=== PATIENT | female | born 1965 | race Caucasian/White ===

== ENCOUNTER 2017-11-24 06:28 | Emergency (ER) | payer OTHER, MEDICARE ==
[~2017-11-24 06:28] MED LIST: AMOXIL 875 MG875 MG PO; ATORVASTATIN CA40 MG PO; FISH OIL500 MG PO; FLUOXETINE20 MG PO; HYDRODIURIL 2525 MG PO; NASONEX0.05 MG/Ac INH; PREDNISONE 20MG20 MG PO; PROAIR HFA0.09 MG/Ac INH; SYMBICORT 160/41 PUF INH; TESSALON PERLE100 MG PO
--- NOTE | 2017-11-24 07:13 | ED INFLUENZA/URI COMPLAINT ---
History of Present Illness General Chief Complaint: General Adult Stated Complaint: "COUGH W/ PHLEM" Source: family, old records Exam Limitations: NONVERBAL SECONDARY TO AUTISM Vital Signs & Intake/Output Vital Signs & Intake/Output Vital Signs Date Time Temp Pulse Resp B/P B/P Pulse O2 O2 Flow FiO2 Mean Ox Delivery Rate 11/24 0801 98.4 90 20 193/93 95 Room Air 11/24 0644 99.8 101 22 150/93 95 Room Air Allergies Coded Allergies: MDX - Bacitracin (From Band-Aid Brand Adhesive Bandages) (Severe, RASH 08/19/13) MDX - Latex (LATEX) (Severe, LIP SWELLING 02/08/11) MDX - Neomycin (From Band-Aid Brand Adhesive Bandages) (Severe, RASH 08/19/13) MDX - Polymyxin B (From Band-Aid Brand Adhesive Bandages) (Severe, RASH 08/19/13 ) MDX - TAPE (TAPE) (Severe, RASH FROM ADHESIVE TAPE 08/19/13) MDX - Shrimp (Shrimp) (Intermediate, FACIAL EDEMA 08/19/13) Uncoded Allergies: LOBSTER (Severe, FACIAL EDEMA 02/08/11) GRASS (Intermediate, URI 02/08/11) TREES (Intermediate, URI 02/08/11) Reconcile Medications Amoxicillin (Amoxil 875 MG Tablets) 875 MG TAB 1 TAB PO BID bronchospasm Atorvastatin Calcium (Lipitor) 40 MG TAB 1 TAB PO DAILY CHOLESTROL (Reported) Benzonatate (Tessalon Perle) 100 MG SGL 1 CAP PO TID PRN COUGH Budesonide/Formoterol Fumara (Symbicort 160-4.5 Mcg Inhaler) 160 MCG/4.5 MCG PUF 2 PUFF INH Q12P PRN BREATHING (Reported) Fluoxetine Hydrochloride (Fluoxetine) 20 MG CAP 1 TAB PO DAILY ALLERGIES ( Reported) Hydrochlorothiazide (Hydrodiuril 25 MG Tab) 25 MG TAB 1 TAB PO DAILY BLOOD PRESSURE (Reported) Mometasone Furoate (Nasonex) 0.05 MG/Actuation SPR 2 SPRAY INH PRN PRN BREATHING (Reported) Prednisone 20 MG TAB 1 TAB PO BID BRONCHOSPASM SALMON OIL/OMEGA-3 FATTY ACIDS (Fish Oil 500 MG Softgel) 500 MG CAP 1 TAB PO DAILY VITAMIN (Reported) Triage Note: PER FAMILY OF PT(PT NONVERBAL) COUGH WITH THICK PHLEGM X 2 WEEKS NO KNOWN FEVERS Triage Nurses Notes Reviewed? yes HPI: Patient brought in by her mother for evaluation of a productive cough that she's had for the past few weeks. There are no fevers. There is no vomiting. Patient has been acting appropriately per her mom. Patient is unable to give any history secondary to nonverbal secondary to autism since . Similar symptoms in the past the patient has required antibiotics and steroids. Past History Travel History Traveled to [place] past 21 day No Medical History Any Pertinent Medical History? see below for history Neurological: NONE EENT: NONE Cardiovascular: hypertension Respiratory: asthma Gastrointestinal: NONE Hepatic: NONE Renal: NONE Musculoskeletal: NONE Psychiatric: AUTISM Endocrine: NONE Surgical History Surgical History: non-contributory Psychosocial History What is your primary language Trinidadian Tobacco Use: Never used ETOH Use: denies use Illicit Drug Use: denies illicit drug use Family History Hx Contributory? No Review of Systems Review of Systems Constitutional: Reports: no symptoms. EENTM: Reports: no symptoms. Respiratory: Reports: see HPI, cough, sputum production. GI: Reports: no symptoms. Neurological/Psychological: Reports: no symptoms. Immunologic/Allergic: Reports: no symptoms. Physical Exam Physical Exam General Appearance: well developed/nourished, awake, mild distress Head: atraumatic, normal appearance Eyes: Bilateral: PERRL, EOMI. Ears, Nose, Throat: normal ENT inspection, moist mucous membrane Neck: normal inspection, supple, full range of motion Respiratory: normal breath sounds, rhonchi (SCATTERED) Cardiovascular: regular rate/rhythm, normal peripheral pulses Extremities: normal inspection, normal capillary refill, normal range of motion, no edema Lymphatic: no anterior cervical tata Core Measures Sepsis Present: No Sepsis Focused Exam Completed? No Progress Differential Diagnosis: pneumonia, BRONCHITIS Plan of Care: Current Medications Sig/Wilfredo Start time Last Medication Dose Stop Time Status Admin Amoxicillin 500 MG ONCE ONE 11/24 814 UNVr (Amoxil) 11/25 815 Benzonatate 100 MG ONCE ONE 11/24 814 UNVr (Tessalon Capsule) 11/25 815 Prednisone 60 MG ONCE ONE 11/24 814 UNVr 11/25 815 Diagnostic Imaging: Viewed by Me: Radiology Read. Discussed w/RAD: Radiology Read. CXR Impression: PATIENT: AJ HARRISON PRESENT AGE: 52 PATIENT ACCOUNT NO: [id number] : 64 LOCATION: [facility] ORDERING PHYSICIAN: Jonathan Del Real MD SERVICE DATE: 11/24/17 EXAM TYPE: RAD - XRY- CHEST XRAY, TWO VIEWS EXAMINATION: XR CHEST CLINICAL INFORMATION: Cough and low- grade temperature COMPARISON: August 16, 2015 TECHNIQUE: 2 views of the chest were obtained. FINDINGS: There is parenchymal disease seen within the left lower lobe and lingula. There may be some degree of pleural fluid present. Heart normal size. No evidence of airspace edema. There are some increased interstitial markings and vascular markings bilaterally. No pneumothorax is seen. IMPRESSION: Left lower lobe and lingula disease consistent with atelectasis or pneumonia with some degree of pleural fluid suspected. DICTATED BY: Raffy Ivy MD DATE/TIME DICTATED:11/24/17757 APPEALS OFFICER: YUMIKO DATE/TIME TRANSCRIBED:11/24/17757 CONFIDENTIAL, DO NOT COPY WITHOUT APPROPRIATE AUTHORIZATION. <Electronically signed in Other Vendor System> SIGNED BY: Raffy Ivy MD 11/24/17 08 Initial ED EKG: none Comments: [facility] CALLED ASKING ABOUT THE DELAY IN THE CXR READ. THEY STATE THAT HER CXR IS THE NEXT TO BE READ. Departure Departure Disposition: HOME OR SELF CARE Condition: Stable Clinical Impression Primary Impression: Pneumonia Qualifiers: Pneumonia type: due to unspecified organism Laterality: left Lung location: lower lobe of lung Qualified Code: J18.1 - Lobar pneumonia, unspecified organism Referrals: Sailaja Wilburn (PCP/Family) Additional Instructions: Take the amoxicillin, prednisone as prescribed. Take Tessalon as needed for the cough. Patient retake her blood pressure medication when he got home. Return if symptoms worsen or for any concerns. Departure Forms: Customer Survey General Discharge Information Prescriptions: Current Visit Scripts Amoxicillin 1 TAB PO TID #30 TAB Benzonatate (Tessalon Perle) 1 CAP PO TID PRN COUGH #30 CAP Prednisone 1 TAB PO DAILY #18 TAB TAKE 3 TABS FOR 3 DAYS THEN TAKE 2 TABS FOR 3 DAYS THEN TAKE 1 TAB FOR 3 DAYS
--- NOTE | 2017-11-24 08:04 | RADIOLOGY REPORT ---
EXAMINATION: XR CHEST CLINICAL INFORMATION: Cough and low-grade temperature COMPARISON: August 16, 2015 TECHNIQUE: 2 views of the chest were obtained. FINDINGS: There is parenchymal disease seen within the left lower lobe and lingula. There may be some degree of pleural fluid present. Heart normal size. No evidence of airspace edema. There are some increased interstitial markings and vascular markings bilaterally. No pneumothorax is seen. IMPRESSION: Left lower lobe and lingula disease consistent with atelectasis or pneumonia with some degree of pleural fluid suspected.
[2017-11-24] MEDS ORDERED: PREDNISONE10 M2 PO (08:09)
[2017-11-24] MEDS ORDERED: AMOXICILLIN500 M3 PO (08:09)
[2017-11-24] MEDS ORDERED: TESSALON PERLE100 M1 PO (08:09)
[2017-11-24 08:24] VITALS: BP 166/88
== END 2017-11-24 08:24 ==
LOC: ERH 06:28
DX: J18.9 Pneumonia, unspecified organism (principal)
CPT/HCPCS: 71046

== ENCOUNTER 2018-04-28 06:34 | Emergency (ER) | payer OTHER, MEDICARE ==
[~2018-04-28 06:34] MED LIST changes: +AMOXICILLIN500 M3 PO; +PREDNISONE10 M2 PO; +TESSALON PERLE100 M1 PO
--- NOTE | 2018-04-28 07:24 | RADIOLOGY REPORT ---
EXAMINATION: XR CHEST CLINICAL INFORMATION: Cough COMPARISON: 11/24/2017 TECHNIQUE: 2 views of the chest were obtained. FINDINGS: Lung volumes are symmetric. Small right pleural effusion is present with mild, somewhat streaky right basilar opacity. The left lung appears well-aerated with probable small pleural effusion. No pneumothorax is seen. The cardiomediastinal contour is unremarkable. No acute osseous findings are seen. IMPRESSION: Small bilateral pleural effusions. Somewhat streaky right basilar opacity may reflect atelectasis or potentially developing consolidation.
--- NOTE | 2018-04-28 07:34 | ED DYSPNEA/ASTHMA COMPLAINT ---
History of Present Illness General Chief Complaint: Upper Respiratory Sx/Fever Stated Complaint: HEAVY COUGH PER MOM Source: patient Exam Limitations: no limitations Vital Signs & Intake/Output Vital Signs & Intake/Output Vital Signs Date Time Temp Pulse Resp B/P B/P Pulse O2 O2 Flow FiO2 Mean Ox Delivery Rate 04/28 717 98.9 94 15 146/73 95 Room Air Allergies Coded Allergies: adhesive tape (Severe, RASH 04/28/18) bacitracin (Severe, RASH 04/28/18) latex (Severe, LIP SWELLING 04/28/18) neomycin (Severe, RASH 04/28/18) polymyxin B (Severe, RASH 04/28/18) shrimp (Intermediate, RACIAL EDEMA 04/28/18) Uncoded Allergies: LOBSTER (Severe, FACIAL EDEMA 02/08/11) GRASS (Intermediate, URI 02/08/11) TREES (Intermediate, URI 02/08/11) Reconcile Medications Atorvastatin Calcium (Lipitor) 40 MG TAB 1 TAB PO DAILY CHOLESTROL (Reported) Fluoxetine Hydrochloride (Fluoxetine) 20 MG CAP 1 TAB PO DAILY ALLERGIES ( Reported) Hydrochlorothiazide (Hydrodiuril 25 MG Tab) 25 MG TAB 1 TAB PO DAILY BLOOD PRESSURE (Reported) SALMON OIL/OMEGA-3 FATTY ACIDS (Fish Oil 500 MG Softgel) 500 MG CAP 1 TAB PO DAILY VITAMIN (Reported) Triage Note: TRIAGE: PATIENT TO ER FROM HOME W/ MOTHER REPORTING +PRODUCTIVE COUGH X 1 WEEK, UNKNOWN WHAT COLOR SPUTUM. ALSO REPORTING NASAL CONGESTION, DENIES SOB. NO ACUTE RESP DISTRESS. PATIENT HX MR, MOTHER W/ PATIENT FOR SUPPORT/ ASSIST. Triage Nurses Notes Reviewed? yes Duration: day(s):, continues in ED, intermittent Timing: multiple episodes today Severity: severe HPI: Patient presents for evaluation of a "chest cough" that began about 1 week ago. The patient herself is unable to provide history due to autism. Patient's mother states there has been a phlegm production with the coughing but no associated dyspnea rashes vomiting or diarrhea. Past History Travel History Traveled to [place] past 21 day No Medical History Any Pertinent Medical History? see below for history Neurological: NONE EENT: NONE Cardiovascular: hypertension Respiratory: asthma Gastrointestinal: NONE Hepatic: NONE Renal: NONE Musculoskeletal: NONE Psychiatric: AUTISM Endocrine: NONE Blood Disorders: NONE Cancer(s): NONE LAW EXAMINER/Reproductive: NONE Surgical History Surgical History: non-contributory Psychosocial History What is your primary language Vietnamese Tobacco Use: Never used Family History Hx Contributory? No Review of Systems Review of Systems Constitutional: Reports: see HPI. Physical Exam Physical Exam Respiratory: see below Comments: Gen.: Well-nourished, well-developed, no acute respiratory distress. Head: Normocephalic, atraumatic. Eyes: Normal inspection bilaterally Ears: Normal inspection bilaterally Nose: Normal inspection Throat/mouth : Moist mucosa Neck: Supple, full range of motion, no goiter Heart: Regular rate and rhythm, no murmurs rubs or gallops Lungs: Mild bibasilar crackles with good air entry bilaterally Chest: Nontender Back: Normal range of motion Abdomen: Soft, nontender, nondistended, normal bowel sounds Extremities: Normal range of motion grossly, equal radial pulses, no cyanosis, mild left pretibial edema (chronic per patient's mother due to prior trauma) Neurologic: Cranial nerves grossly intact, unable to assess speech Skin: warm and dry Psychiatric: Calm, cooperative Core Measures ACS in differential dx? No CVA/TIA Diagnosis No Sepsis Present: No Sepsis Focused Exam Completed? No Progress Differential Diagnosis: bronchitis, CHF, COPD, pneumonia, pneumothorax Plan of Care: See discharge instructions CXR Impression: PATIENT: JEANNE HARRISON PRESENT AGE: 52 PATIENT ACCOUNT NO: [id number] : 63 LOCATION: [facility] ORDERING PHYSICIAN: Asren Goldsmith MD SERVICE DATE: 04/28/18 EXAM TYPE: RAD - XRY-CHEST XRAY, TWO VIEWS EXAMINATION: XR CHEST CLINICAL INFORMATION: Cough COMPARISON: 11/24/2017 TECHNIQUE: 2 views of the chest were obtained. FINDINGS: Lung volumes are symmetric. Small right pleural effusion is present with mild, somewhat streaky right basilar opacity. The left lung appears well- aerated with probable small pleural effusion. No pneumothorax is seen. The cardiomediastinal contour is unremarkable. No acute osseous findings are seen. IMPRESSION: Small bilateral pleural effusions. Somewhat streaky right basilar opacity may reflect atelectasis or potentially developing consolidation. DICTATED BY: Kong Solano MD DATE/TIME DICTATED:04/28/18719 PHARMACY SALES ASSISTANT:YUMIKO DATE/TIME TRANSCRIBED:04/28/18719 CONFIDENTIAL, DO NOT COPY WITHOUT APPROPRIATE AUTHORIZATION. <Electronically signed in Other Vendor System> SIGNED BY: Kong Solano MD 04/28/18 0724 Initial ED EKG: none Comments: 04/28/2018 9:38:05 AM I have updated Jeanne and and her mother on the chest x-ray report. Given the indication of changes in the right chest I will prescribe an antibiotic for the possibility of an early pneumonia. Her mother will then treat with an [id number] cough medication. Departure Departure Disposition: HOME OR SELF CARE Condition: Stable Clinical Impression Primary Impression: Cough Referrals: Sailaja Wilburn (PCP/Family) Additional Instructions: Azithromycin as prescribed. [id number] cough medication if needed. Follow-up with your primary care physician in 48-72 hours if not improving. Return if any concerns or sudden worsening. Thank you for choosing the [facility] for your care. It was a pleasure to serve you today. Kodak Moise M.D. [facility] Departure Forms: Customer Survey General Discharge Information Critical Care Note Critical Care Note Critical Care Time: non-applicable
[2018-04-28 09:51] VITALS: BP 150/93
[2018-04-28] MEDS ORDERED: ZITHROMAX250 M2 PO (12:45)
== END 2018-04-28 09:52 ==
LOC: ERH 06:34
DX: R05 Cough (principal); I10 Essential (primary) hypertension; J45.909 Unspecified asthma, uncomplicated
CPT/HCPCS: 71046